=== PATIENT | male | born 1950 | race Asian ===

== ENCOUNTER 2017-09-21 12:56 | Emergency (ER) | payer MEDICAID ==
[~2017-09-21] VITALS: Ht 154.9 cm; Wt 48.2 kg
[2017-09-21 12:58] VITALS: BP 145/99
== END 2017-09-21 14:38 | disposition left against medical advice (07) ==
LOC: EMS 12:58
DX: H92.01 Otalgia, right ear (principal); R56.9 Unspecified convulsions; Z53.21 Procedure and treatment not carried out due to patient leaving prior to being seen by health care provider

== ENCOUNTER 2018-05-17 12:24 | Emergency (ER) | payer MEDICARE, OTHER ==
[~2018-05-17] VITALS: Ht 165.1 cm; Wt 62.9 kg
[2018-05-17 13:21] VITALS: BP 157/95
== END 2018-05-17 13:51 | disposition home or self-care (01) ==
LOC: EMS 12:24
DX: G40.909 Epilepsy, unspecified, not intractable, without status epilepticus (principal)